=== PATIENT | female | born 2000 | race Caucasian/White ===

== ENCOUNTER → 2025-04-12 22:17 | Day surgery (SDC) | payer BC, SELFPAY ==
[2025-04-12] VITALS (16 sets, daily range): BP systolic 85–117; BP diastolic 53–86
[2025-04-12] MEDS: TORADOL 15 MG IV (17:42)
[2025-04-12 17:55] LABS: Hematocrit 33.7 % (37.0-47.0); Hemoglobin 11.6 g/dL (12.0-16.0); Mean Corp Hgb Conc. 34.4 g/dL (33.0-37.0); Mean Corpuscular Volume 90.3 fL (81.0-99.0); Platelet Count 255 10^3/uL (130-400); Red Cell Dist. Width 12.3 % (11.5-14.5)
[2025-04-12] MEDS: NSS 1000 IV (17:56)
[2025-04-12 18:08] LABS: HCG, Serum Qualitative Screen Positive
[2025-04-12 18:11] LABS: Urine Character Clear (Clear)
[2025-04-12 18:13] LABS: Nucleated Red Blood Cells % 0 %
[2025-04-12 18:14] LABS: ALT (SGPT) 13 U/L (0-35); AST (SGOT) 16 U/L (14-36); Albumin 4.7 g/dl (3.5-5.0); Alkaline Phosphatase 46 U/L (38-126); Blood Urea Nitrogen 10 mg/dl (7-17); Calcium 9.7 mg/dl (8.4-10.2); Carbon Dioxide 24 mmol/L (22-30); Chloride 109 mmol/L (98-107); Glucose 88 mg/dl (70-99); Potassium 3.6 mmol/L (3.5-5.1); Sodium 140 mmol/L (135-145); Total Protein 7.3 g/dl (6.3-8.2); eGFR > 60.00
[2025-04-12 18:24] LABS: Urine Squamous Cell >30 /LPF (Few)
[2025-04-12 18:30] LABS: Beta HCG Quantitative 512.73 mIU/ml
--- NOTE | 2025-04-12 19:31 | ED.GENMED ---
History of Present Illness
<Sarahy Bautista RELATIONSHIP MGR - Last Filed: 04/16/25 15:13>
General
Chief Complaint: Vaginal Bleeding
Source: patient
Exam Limitations: none
Time Seen by Provider: 04/12/25 17:21
Nursing documentation reviewed up to this point in time: agreed with
History of Present Illness
History of Present Illness:
The patient is a 25-year-old female presenting with ongoing and significant vaginal bleeding since March 21 when she had a spontaneous miscarriage. She reports using three to five overnight pads per day due to heavy bleeding. The bleeding has been
consistent and has worsened over the past week and a half, reaching a point where she passed a clot approximately the size of a lemon earlier today. Upon standing up, she experienced an immediate and substantial gush of blood that soaked through her
pad, underwear, and shorts, reaching her sock. Following this incident, she felt extremely dizzy, out of sorts, and nauseous, subsequently vomiting in her car. She described feeling 'foggy' and not quite herself, alongside consistent abdominal
cramping pain, which she has been managing with Tylenol, Advil, a heating pad, and baths. 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
Denies fever or chills.
She recently moved to the area and had her first LAMINATOR appointment at [facility] prior to her miscarriage
Review of Systems
<Sarahy Bautista RELATIONSHIP MGR - Last Filed: 04/16/25 15:13>
Review of Systems
Allergies reviewed?: Yes
All Other Systems: ROS reviewed and negative except as documented in HPI and ROS
Constitutional: Denies fever
ABD/GI: Reports nausea and vomiting (vomited once)
: Reports bleeding; Denies dysuria
Neurological: Reports dizzy (lightheaded)
Phy Exam
<Sarahy Bautista, RELATIONSHIP MGR - Last Filed: 04/16/25 15:13>
Physical Exam
Physical Exam:
GENERAL: No acute distress. A&Ox3.
CONSTITUTIONAL: Afebrile.
EYES: clear, conjunctivae normal
ENMT: [place] mucous membranes, moist mucus membranes, Pharynx nl
RESPIRATORY: Regular respirations, nonlabored, lungs clear.
CARDIOVASCULAR: Regular rate and rhythm, no murmurs, no rubs.
GI: Soft, nontender, normal BS
:
MUSCULOSKELETAL: Moves with ease. Well perfused.
SKIN: Warm, dry, pink
PSYCH: Normal mood and affect. Well kept, interactive and appropriate
NEUROLOGIC: Awake, alert and oriented. No focal neurological deficits
Course
<Sarahy Bautista, RELATIONSHIP MGR - Last Filed: 04/16/25 15:13>
Orders/Labs/Results
Orders:
Orders
04/12/25 17:06
ECG [Electrocardiogram (*1)] Urgent
Reason for Study: Syncope
EKG- Treatment ONCE
04/12/25 17:10
Test Result ONCE
04/12/25 17:22
US W Transvaginal Urgent
Reason For Exam: heavy bleeding after miscarriage 03/21
04/12/25 17:38
Complete Blood Count/With Diff Urgent
Comprehensive Metabolic Panel Urgent
HCG, Serum Qualitative Screen Urgent
HCG,SERUM [Beta HCG Quantitative] Urgent
Is this a screen?: No
Urinalysis Reflex To Culture Urgent
Date Specimen was Collected: 04/12/25
Time Specimen was Collected: 17:15
Urine Microscopic Reflex Cult Urgent
Urine Culture Urgent
FAY Source: U
Specimen Description:
Date Specimen was Collected: 04/12/25
Time Specimen was Collected: 17:15
04/12/25 17:40
Ketorolac [Toradol] 15 mg IV NOW STA
04/12/25 17:44
Type And Crossmatch [Type+Screen] Urgent
04/12/25 17:56
0.9% Sodium Chloride 1000 ml [Nss] 1,000 ml IV BOLUS
04/12/25 20:23
ABO2 Urgent
KnowmiaK Wristband Number:
Associate notified that ABO2 has been ordered: [id number]
Date: 04/12/25
Time: 18:10
Records Management Engineer ID: [id number]
04/12/25 20:40
Morphine Sulfate 2 mg IV NOW STA
04/12/25 21:40
Doxycycline [Vibramycin] 200 mg PO NOW STA
04/12/25 21:52
Fentanyl Citrate/Pf [Sublimaze] 100 mcg .ROUTE .STK-MED ONE
04/12/25 21:53
Fentanyl Citrate/Pf [Sublimaze] 25 mcg IV [id number] PRN
Fentanyl Citrate/Pf [Sublimaze] 25 mcg IV PACU-Q5MPRN PRN
Fentanyl Citrate/Pf [Sublimaze] 50 mcg IV PACU-Q5MPRN PRN
Midazolam HCl [Versed] 2 mg .ROUTE .STK-MED ONE
Ondansetron Injectable [Zofran] 4 mg IV PACU-ONCEPRN PRN
Prochlorperazine [Compazine] 5 mg IV PACU-ONCEPRN PRN
Notify MD As Directed
Notify physician if: for SDS patients with known or suspected sleep obstructive sleep apnea, monitor in the
PACU.
Notify MD for any apneic/desaturation episodes
O2 Therapy [RESP] Urgent
Titrate/Wean O2 to maintain O2 sat greater than (%): 92
Special Instructions: -Provide supplemental oxygen to achieve O2 sat of 92% or greater.
-After 15 min, may wean O2 and discontinue if patient is able to maintain O2 sat of 92%
or greater during recovery period.
If patient is a discharge home, without oxygen therapy, notify anestheiologist if
unable to maintain O2 SAT of 92% or greater on room air for MD clearance.
04/12/25 21:58
Dexamethasone Sod Phosphate [Decadron] 20 mg .ROUTE .STK-MED ONE
Lidocaine HCl/Pf [Xylocaine-Mpf 1% Vial] 50 mg .ROUTE .STK-MED ONE
Ondansetron Injectable [Zofran] 4 mg .ROUTE .STK-MED ONE
Propofol [Diprivan] 20 ml .ROUTE .STK-MED
04/12/25 22:00
Normosol (Mult Electrolytes) [Normosol-R/Plasmalyte-A] 1,000 ml IV PER PROTOCOL
04/12/25 22:25
OR Pathology Routine
Pre-Operative Diagnosis: RETAINED PRODUCTS OF CONCEPTION
Operative Procedure: D&E
Surgeon: ARLEY
Circulating Nurse: DONA
Specimen Type: PRODUCTS OF CONCEPTION
04/12/25 22:57
Fentanyl Citrate/Pf [Sublimaze] 100 mcg .ROUTE .STK-MED ONE
04/12/25 23:00
Acetaminophen [Tylenol] 650 mg PO SDS-Q4HPRN PRN
Ibuprofen [Motrin] 600 mg PO SDS-Q6HPRN PRN
Normosol (Mult Electrolytes) [Normosol-R/Plasmalyte-A] 1,000 ml IV SDS-ONCE
Ondansetron Injectable [Zofran] 4 mg IV SDS-ONCEPRN PRN
Oxycodone [Roxicodone] 5 mg PO SDS-Q4HPRN PRN
04/12/25 23:07
Oxycodone [Roxicodone] 5 mg .ROUTE .STK-MED ONE
04/12/25 23:33
HYDROmorphone [Dilaudid] 0.25 mg IV PACU-Q5MPRN PRN
HYDROmorphone [Dilaudid] 0.5 mg IV PACU-Q5MPRN PRN
Notify MD As Directed
Notify physician if: for SDS patients with known or suspected sleep obstructive sleep apnea, monitor in the
PACU.
Notify MD for any apneic/desaturation episodes
04/12/25 23:37
HYDROmorphone [Dilaudid] 0.5 mg .ROUTE .STK-MED ONE
Abnormal Lab Results
04/12/25
17:38
RBC 3.73 L 10^6/uL
(4.20-5.40)
Hgb 11.6 L g/dL
(12.0-16.0)
Hct 33.7 L %
(37.0-47.0)
MCH 31.1 H pg
(27.0-31.0)
Chloride 109 H mmol/L
(98-107)
Ur Occult Blood Reflex 4+ A
(Negative)
Leukocyte Esterase Rfl 2+ A
(Negative)
Urine RBC 3-6 A /HPF
(0-2)
Urine WBC (Reflex) 11-15 A /HPF
(0-5)
Urine Bacteria (Reflex) Few A
(Negative)
Urine Albumin (Reflex) 2+ A
(Neg - Trace)
04/12/25 17:38
04/12/25 17:38
Vital Signs
Initial and Last Documented VS:
Initial Vital Signs
Temp Pulse Resp BP Pulse Ox
98.5 F 96 18 117/82 98
04/12/25 16:54 04/12/25 16:54 04/12/25 16:54 04/12/25 16:54 04/12/25 16:54
Last Documented Vital Signs
Temp Pulse Resp BP Pulse Ox
97.4 F 75 13 101/72 97
04/12/25 23:50 04/12/25 23:51 04/12/25 23:51 04/12/25 23:57 04/12/25 23:57
<Constantino Wood PA-C - Last Filed: 04/12/25 21:38>
Orders/Labs/Results
Orders:
Orders
04/12/25 17:06
ECG [Electrocardiogram (*1)] Urgent
Reason for Study: Syncope
EKG- Treatment ONCE
04/12/25 17:10
Test Result ONCE
04/12/25 17:22
US W Transvaginal Urgent
Reason For Exam: heavy bleeding after miscarriage 03/21
04/12/25 17:38
Complete Blood Count/With Diff Urgent
Comprehensive Metabolic Panel Urgent
HCG, Serum Qualitative Screen Urgent
HCG,SERUM [Beta HCG Quantitative] Urgent
Is this a screen?: No
Urinalysis Reflex To Culture Urgent
Date Specimen was Collected: 04/12/25
Time Specimen was Collected: 17:15
Urine Microscopic Reflex Cult Urgent
Urine Culture Urgent
FAY Source: U
Specimen Description:
Date Specimen was Collected: 04/12/25
Time Specimen was Collected: 17:15
04/12/25 17:40
Ketorolac [Toradol] 15 mg IV NOW STA
04/12/25 17:44
Type And Crossmatch [Type+Screen] Urgent
04/12/25 17:56
0.9% Sodium Chloride 1000 ml [Nss] 1,000 ml IV BOLUS
04/12/25 20:23
ABO2 Urgent
KnowmiaK Wristband Number:
Associate notified that ABO2 has been ordered: [id number]
Date: 04/12/25
Time: 18:10
Records Management Engineer ID: [id number]
04/12/25 20:40
Morphine Sulfate 2 mg IV NOW STA
04/12/25 21:40
Doxycycline [Vibramycin] 200 mg PO NOW STA
04/12/25 21:52
Fentanyl Citrate/Pf [Sublimaze] 100 mcg .ROUTE .STK-MED ONE
04/12/25 21:53
Fentanyl Citrate/Pf [Sublimaze] 25 mcg IV [id number] PRN
Fentanyl Citrate/Pf [Sublimaze] 25 mcg IV PACU-Q5MPRN PRN
Fentanyl Citrate/Pf [Sublimaze] 50 mcg IV PACU-Q5MPRN PRN
Midazolam HCl [Versed] 2 mg .ROUTE .STK-MED ONE
Ondansetron Injectable [Zofran] 4 mg IV PACU-ONCEPRN PRN
Prochlorperazine [Compazine] 5 mg IV PACU-ONCEPRN PRN
Notify MD As Directed
Notify physician if: for SDS patients with known or suspected sleep obstructive sleep apnea, monitor in the
PACU.
Notify MD for any apneic/desaturation episodes
O2 Therapy [RESP] Urgent
Titrate/Wean O2 to maintain O2 sat greater than (%): 92
Special Instructions: -Provide supplemental oxygen to achieve O2 sat of 92% or greater.
-After 15 min, may wean O2 and discontinue if patient is able to maintain O2 sat of 92%
or greater during recovery period.
If patient is a discharge home, without oxygen therapy, notify anestheiologist if
unable to maintain O2 SAT of 92% or greater on room air for MD clearance.
04/12/25 21:58
Dexamethasone Sod Phosphate [Decadron] 20 mg .ROUTE .STK-MED ONE
Lidocaine HCl/Pf [Xylocaine-Mpf 1% Vial] 50 mg .ROUTE .STK-MED ONE
Ondansetron Injectable [Zofran] 4 mg .ROUTE .STK-MED ONE
Propofol [Diprivan] 20 ml .ROUTE .STK-MED
04/12/25 22:00
Normosol (Mult Electrolytes) [Normosol-R/Plasmalyte-A] 1,000 ml IV PER PROTOCOL
04/12/25 22:25
OR Pathology Routine
Pre-Operative Diagnosis: RETAINED PRODUCTS OF CONCEPTION
Operative Procedure: D&E
Surgeon: ARLEY
Circulating Nurse: DONA
Specimen Type: PRODUCTS OF CONCEPTION
04/12/25 22:57
Fentanyl Citrate/Pf [Sublimaze] 100 mcg .ROUTE .STK-MED ONE
04/12/25 23:00
Acetaminophen [Tylenol] 650 mg PO SDS-Q4HPRN PRN
Ibuprofen [Motrin] 600 mg PO SDS-Q6HPRN PRN
Normosol (Mult Electrolytes) [Normosol-R/Plasmalyte-A] 1,000 ml IV SDS-ONCE
Ondansetron Injectable [Zofran] 4 mg IV SDS-ONCEPRN PRN
Oxycodone [Roxicodone] 5 mg PO SDS-Q4HPRN PRN
04/12/25 23:07
Oxycodone [Roxicodone] 5 mg .ROUTE .STK-MED ONE
04/12/25 23:33
HYDROmorphone [Dilaudid] 0.25 mg IV PACU-Q5MPRN PRN
HYDROmorphone [Dilaudid] 0.5 mg IV PACU-Q5MPRN PRN
Notify MD As Directed
Notify physician if: for SDS patients with known or suspected sleep obstructive sleep apnea, monitor in the
PACU.
Notify MD for any apneic/desaturation episodes
04/12/25 23:37
HYDROmorphone [Dilaudid] 0.5 mg .ROUTE .STK-MED ONE
Abnormal Lab Results
04/12/25
17:38
RBC 3.73 L 10^6/uL
(4.20-5.40)
Hgb 11.6 L g/dL
(12.0-16.0)
Hct 33.7 L %
(37.0-47.0)
MCH 31.1 H pg
(27.0-31.0)
Chloride 109 H mmol/L
(98-107)
Ur Occult Blood Reflex 4+ A
(Negative)
Leukocyte Esterase Rfl 2+ A
(Negative)
Urine RBC 3-6 A /HPF
(0-2)
Urine WBC (Reflex) 11-15 A /HPF
(0-5)
Urine Bacteria (Reflex) Few A
(Negative)
Urine Albumin (Reflex) 2+ A
(Neg - Trace)
04/12/25 17:38
04/12/25 17:38
Vital Signs
Initial and Last Documented VS:
Initial Vital Signs
Temp Pulse Resp BP Pulse Ox
98.5 F 96 18 117/82 98
04/12/25 16:54 04/12/25 16:54 04/12/25 16:54 04/12/25 16:54 04/12/25 16:54
Last Documented Vital Signs
Temp Pulse Resp BP Pulse Ox
97.4 F 75 13 101/72 97
04/12/25 23:50 04/12/25 23:51 04/12/25 23:51 04/12/25 23:57 04/12/25 23:57
<Sarahy Bautista, RELATIONSHIP MGR - Last Filed: 04/16/25 15:13>
MDM/Problems Addressed
Differential Diagnosis Includes:
Post miscarriage complications, dysfunctional uterine bleeding, uterine fibroid, endometrial hyperplasia
MDM/Problems Addressed:
The patient is a 25-year-old female presenting with ongoing and significant vaginal bleeding since March 21 when she had a spontaneous miscarriage. She reports using three to five overnight pads per day due to heavy bleeding. The bleeding has been
consistent and has worsened over the past week and a half, reaching a point where she passed a clot approximately the size of a lemon earlier today. Upon standing up, she experienced an immediate and substantial gush of blood that soaked through her
pad, underwear, and shorts, reaching her sock. Following this incident, she felt extremely dizzy, out of sorts, and nauseous, subsequently vomiting in her car. She described feeling 'foggy' and not quite herself, alongside consistent abdominal
cramping pain, which she has been managing with Tylenol, Advil, a heating pad, and baths. 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
Denies fever or chills.
She recently moved to the area and had her first LAMINATOR appointment at [facility] prior to her miscarriage
Afebrile, VSS, NAD
7 PM:
CBC with no clinically significant abnormality, hemoglobin 11.6
CMP: Normal
hCG positive
hCG quantitative 512.73
UA 11-15 WBCs, greater than 30 squamous cells, few bacteria, patient is asymptomatic will await culture results
Plan:
The plan includes obtaining an ultrasound requiring a full bladder, for which the patient will be provided with fluids both orally and intravenously. Additionally, the patient is to receive pain relief via Toradol.
8:15 p.m.
US radiology report read: Heterogeneous endometrium measuring 18 mm in thickness with areas of color Doppler flow, raising concern for retained products of conception
Consulted LAMINATOR Dr. Galvin who will be in OR then will come see pt
Pt notified and comfortable.
Case discussed with Tramaine FLETCHER who will assume care from this point.
<Sarahy Bautista RELATIONSHIP MGR - Last Filed: 04/16/25 15:13>
*Pulse Oximetry
SaO2: 99
Oxygen Mode of Delivery: Room air
*EKG
EKG Intrepretation Date: 04/12/25
Interpretation: normal
Heart Rate: 93
Rate: normal
Rhythm: sinus
[place]: normal axis
Interval: normal interval
QRS Pattern: normal QRS
Ischemia: no ischemia
<CHANCE Bahena-C - Last Filed: 04/12/25 21:38>
*Pulse Oximetry
Patient hypoxic: no
*Critical Care Note
Total Time (30-74mins, 75-104mins- exclusive of procedures): Not Applicable
<Constantino Wood PA-C - Last Filed: 04/12/25 21:38>
Patient Management
Discussion with other providers: Tile And Marble Setter
Escalation/DeEscalation of care consider admission/obs:
Patient received in signout pending evaluation by MACHINE FILLER SERVICER. Patient was seen at the bedside, decision was made to take patient to the OR for D&E. Will be to place orders. Patient to remain NPO.
ED Attending Note
<Sarahy Bautista NP - Last Filed: 04/16/25 15:13>
-
Portions of this chart may have been created with voice recognition software.� Occasional wrong word or��sound alike� substitutions may have occurred due to the inherent limitations of voice recognition software.
Discharge Plan
Departure
Patient Disposition: OR
Date of Disposition: 04/12/25
Time of Disposition: 21:36
Presentation/result/management discussed w/ accepting MD/DO: Dr. Galvin
Discharge Problem:
Retained products of conception after miscarriage
Interventions
Interventions:
*Risk Screen - Suicide Last Done: 04/12/25 22:00
*General Assessment Last Done: 04/12/25 16:54
*Neglect/Abuse Screening Last Done: 04/12/25 16:54
*ED- Fall Risk Assessment Last Done: 04/12/25 16:54
*ED COVID-19 Vaccine History Last Done: 04/12/25 16:54
*Nursing Disposition Last Done: 04/12/25 22:00
ED-Female Genitourinary Assessment Last Done: 04/12/25 17:54
Discharge Date and Time
Discharge Date/Time: 04/12/25 22:17
[2025-04-12] MEDS: MORPHINE SULFATE 2 MG IV (20:46)
[2025-04-12] MEDS: VIBRAMYCIN 200 MG PO (21:56)
[2025-04-12] MEDS: SUBLIMAZE 50 MCG IV ×2 (22:58→23:22)
[2025-04-12] MEDS: ROXICODONE 5 MG PO (23:11)
[2025-04-12] MEDS: MOTRIN 600 MG PO (23:11)
[2025-04-12] MEDS: DILAUDID 0.5 MG IV (23:38)
--- NOTE | 2025-04-13 02:21 | HPS.HSE ---
Family Physician
-
Family Physician: NOT KNOW UNKNOWN - PT DOES
Chief Complaint
-
vaginal bleeding, abdominal pain
History of Present Illness
HPI: Patient is a 25yo who presented to the ED with complaints of heavy vaginal bleeding and abdominal cramping. She reports having a spontaneous miscarriage, starting on 03/21. She has been having vaginal bleeding since that time. She has been
going through 3-4 overnight pads per day. [place], [place] the [place] and started having very heavy bleeding and she soaked through a pad and her shorts and it was going down her leg. She has also been having increased cramping. She is from [place]
and recently moved her and started to establish care with a TRIAL EXAMINER at [place] but has not seen them yet. She is planning to move to [place] soon. She denies fevers or chills.
PMHx: POTS, hypothyroidism, history of STEMI at age 20, history of PE at 18 (found to be from OCPs)
Meds: denies
Surghx: tonsillectomy, adenoids, eye surgery
All: PCN- anaphylaxis, latex
Socialhx: occasional etoh, denies tobacco or illicit drug use
Famhx: mom w/ ovarian and breast cancer, both grandparents with breast cancer
Gynhx: LMP 01/26, regular monthly periods
Medical History
Past Medical History
Past Medical History: Reports Hypothyroidism
Past Surgical History: Reports Tonsilectomy
Social History
Tobacco: Non-smoker
Alcohol: Occasional
Drug: None
Family History
Family History: Cancer
Allergies / Home Medications
Allergies reflects when Allergies were last updated in [facility].
Home Medications with original date entered in [facility]
Allergy/Medication List:
All: PCN, latex
Meds: denies
Review of Systems
-
A 12 point ROS was completed and negative except as noted: Yes
Physical Exam
Vital Signs
Vital Signs
Temp Pulse Resp BP Pulse Ox
97.4 F 75 13 101/72 97
04/12/25 23:50 04/12/25 23:51 04/12/25 23:51 04/12/25 23:57 04/12/25 23:57
Physical Exam
General: Well Developed and Well Nourished
HEENT: NormoCephalic
Respiratory: Non Labored Respirations
Cardiac: Regular Rhythm
GI: Soft and Non Tender
Skin: Warm and Dry
Neuro: Awake
Psych: Calm
Laboratory Results
-
04/12/25 17:38
04/12/25 17:38
Laboratory Results
Total Bilirubin 0.7 mg/dl (0.2-1.3) 04/12/25 17:38
AST 16 U/L (14-36) 04/12/25 17:38
ALT 13 U/L (0-35) 04/12/25 17:38
Alkaline Phosphatase 46 U/L (38-126) 04/12/25 17:38
Impression/Plan
-
IMPRESSION:
Patient is a 25yo who presents with vaginal bleeding, found to have retained products
PLAN:
- Pelvic US reviewed and consistent with retained products of conception. Given the amount of bleeding patient has been having and retained products on US, recommend proceeding with dilation and evacuation. Risks, benefits and alternatives reviewed
including bleeding, infection, damage to surrounding structures, need for future operations, Asherman's syndrome, and incomplete evacuation of retained products. Patient consented for a blood transfusion in case of emergency
- Doxycycline 200mg PO to be given within 1 hour of the procedure for antibiotic prophylaxis
- Postoperative expectations and restrictions reviewed with patient and her partner and all questions answered
--- NOTE | 2025-04-13 02:30 | OR.RPT ---
Operative Report
Operative Report
Date of procedure: 04/12/2025
Preop diagnosis: retained products of conception
Postop diagnosis: same
Surgeon: Glenis
Procedure: dilation and evacuation
Anesthesia: General, [place]
EBL: 50mL
Findings: Bimanual exam revealed anteverted uterus. Normal appearing cervix without lesions or masses.
Complications: none
Pathology: products of conception
Indication: Patient is a 25yo who presented to the ED with complaints of vaginal bleeding and abdominal cramping. She had a miscarriage starting on March 21 and has been bleeding since. Today, she had heavy bleeding and passage of large clots
so she came to the ED for evaluation. Pelvic ultrasound revealed retained products of conception. Dilation and evacuation recommended. Risks, benefits and alternatives reviewed and all questions answered. Consents were signed.
Procedure:
Patient was taken to the operating room and placed under general anesthesia. She was placed in the dorsal lithotomy position with Jorge type stirrups. She was given 200mg Doxycycline PO was given prior to the procedure for antibiotic prophylaxis.
She was prepped and draped in the normal sterile fashion. The bladder was drained with a straight catheter yielding 100cc of clear yellow urine. A Lindsey retractor was placed in the posterior aspect of the vagina and the anterior aspect of the vagina
revealing good visualization of the cervix. The anterior lip of the cervix was grasped with a single tooth tenaculum. The cervix was sequentially dilated to accommodate a 7mm curved rigid suction curette. A 7mm curved rigid suction curette was
introduced to the fundus. Vacuum was applied until it was in the green. A suction curettage was then performed with a rotational motion in all quadrants of the uterus. Multiple passes were performed until all products of conception were removed.
Care was taken not to introduce the suction curette with suction applied. The tenaculum was removed from the anterior lip of the cervix. Hemostasis was then noted. All instruments were removed from the vagina. All sponge and instrument counts were
correct times 2. Patient was taken to PACU in stable condition.
== END | disposition home or self-care (01) ==
LOC: EMR 16:47 → SDS 22:17
PROVIDERS: Physician Assistant; ATTENDING PHYSICIAN Obstetrics & Gynecology; EMERGENCY PHYSICIAN Student in an Organized Health Care Education/Training Program
DX: O03.4 Incomplete spontaneous abortion without complication (principal); N85.4 Malposition of uterus
CPT/HCPCS: 59812; 76801; 76817; 80053; 81003; 81015; 84702; 84703; 85025; 86850; 86900; 86901; 87077; 87086; 87186; 88305; 93005; 96361; 96374; 96375; 99285